=== PATIENT | female | born 1990 | race Caucasian/White ===

== ENCOUNTER 2017-04-14 22:55 | Observation (INO) | payer MEDICAID ==
[~2017-04-14] VITALS: Ht 154.9 cm; Wt 46.2 kg
[2017-04-14] MEDS ORDERED: ONDANSETRON ODT 4 MG ONE (23:13)
[2017-04-14] MEDS ORDERED: LORazepam 1MG TABLET ONE (23:13)
[2017-04-14 23:28] LABS: BASOPHILS # (AUTO) 0.03 x10^3/uL (0-0.1); BASOPHILS % (AUTO) 0 % (0-1); EOSINOPHILS # (AUTO) 0.04 x10^3/uL (0-0.4); EOSINOPHILS % (AUTO) 0 % (1-7); LYMPHOCYTES % (AUTO) 32 % (22-44); MD NO; MEAN CORPUSCULAR HEMOGLOBIN 30.9 pg (27.0-34.8); MEAN CORPUSCULAR HGB CONC 33.5 g/dL (32.4-35.8); MEAN CORPUSCULAR VOLUME 92.3 fL (80-100); MONOCYTES # (AUTO) 1.07 x10^3/uL (0.2-0.8); MONOCYTES % (AUTO) 9 % (2-9); NEUTROPHILS # (AUTO) 6.64 x10^3/uL (1.8-6.8); NEUTROPHILS % (AUTO) 58 % (42-75); PLATELET COUNT 246 x10^3/uL (130-400); RED BLOOD COUNT 5.14 x10^6/uL (3.82-5.3); RED CELL DISTRIBUTION WIDTH 13.9 % (9.6-15.2)
[2017-04-14] MEDS ORDERED: ONDANSETRON ODT 4 MG PO ONE (23:30)
[2017-04-14] MEDS ORDERED: LORazepam 1MG TABLET PO ONE (23:30)
[2017-04-14 23:39] LABS: ALANINE AMINOTRANSFERASE 12 U/L (12-78); ALBUMIN 4.4 g/dL (3.4-5.0); ANION GAP 11 mmol/L (5-15); CALCIUM 8.7 mg/dL (8.5-10.1); CHLORIDE 103 mmol/L (98-107); CREATININE 0.74 mg/dL (0.55-1.02); SALICYLATE LEVEL 2.1 mg/dL (2.8-20.0)
[2017-04-14 23:43] LABS: ALKALINE PHOSPHATASE 80 U/L (45-117); TOTAL PROTEIN 7.9 g/dL (6.4-8.2)
[2017-04-14 23:49] LABS: BILIRUBIN,TOTAL 0.6 mg/dL (0.2-1.0)
[2017-04-14 23:52] LABS: ACETAMINOPHEN < 2 mcg/mL (10-30)
[2017-04-15 00:07] LABS: MICROSCOPIC INDICATED
[2017-04-15 00:15] LABS: AMPHETAMINE SCREEN, URINE Negative (Negative); BARBITURATE SCREEN, URINE Negative (Negative); BENZODIAZEPINE SCREEN, URINE Positive (Negative); CANNABINOID SCREEN, URINE Positive (Negative); COCAINE SCREEN, URINE Negative (Negative); METHADONE SCREEN, URINE Negative (Negative); OPIATE SCREEN, URINE Positive (Negative)
[2017-04-15 00:16] LABS: CULTURE INDICATED? YES
[2017-04-15] MEDS ORDERED: DOCUSATE 100 MG CAPSULE PO PRN (00:30)
[2017-04-15] MEDS ORDERED: DIPHENHYDRAMINE 50 MG CAPSULE ONE (01:38)
[2017-04-15] MEDS ORDERED: ZIPRASIDONE 20MG CAPSULE ONE ×2 (01:43→14:53)
[2017-04-15] MEDS: ZIPRASIDONE 20MG CAPSULE PO PRN ×2 (01:45→16:35)
[2017-04-15] MEDS ORDERED: IBUPROFEN 200 MG TABLET ONE (12:19)
[2017-04-15] MEDS ORDERED: ZIPRASIDONE 20 MG INJ IM ONE (12:20)
[2017-04-15] MEDS: ZIPRASIDONE 20 MG INJ IM PRN (13:46)
[2017-04-15] MEDS ORDERED: DIPHENHYDRAMINE 25 MG CAPSULE ONE (14:53)
[2017-04-15] MEDS: IBUPROFEN 600 MG TABLET PO PRN (15:00)
[2017-04-15] MEDS: DIPHENHYDRAMINE 50 MG CAPSULE PO PRN ×2 (16:35→19:32)
[2017-04-15] MEDS: ONDANSETRON ODT 4 MG PO PRN (17:58)
[2017-04-15] MEDS ORDERED: KETOROLAC 30 MG/1 ML IM ONE (18:30)
[2017-04-15 19:45] VITALS: BP 90/41
[2017-04-15] MEDS ORDERED: ONDANSETRON ODT 4 MG PO PRN (20:00)
[2017-04-15 21:00] VITALS: BP 100/68
[2017-04-15] MEDS: CEFDINIR 300 MG CAPSULE PO SCH ×2 (21:00→21:04)
[2017-04-15] MEDS: PROMETHAZINE 25 MG/ML, 1ML IM PRN (21:05)
[2017-04-16] MEDS: ONDANSETRON ODT 4 MG PO PRN ×3 (00:13→20:12)
[2017-04-16 02:02] VITALS: BP 104/61
[2017-04-16] MEDS: PROMETHAZINE 25 MG/ML, 1ML IM PRN ×2 (02:33→11:42)
[2017-04-16] MEDS: ZIPRASIDONE 20 MG INJ IM PRN (04:56)
[2017-04-16 06:07] VITALS: BP 123/77
[2017-04-16 09:09] LABS: BASOPHILS # (AUTO) 0.08 x10^3/uL (0-0.1); BASOPHILS % (AUTO) 1 % (0-1); EOSINOPHILS % (AUTO) 0 % (1-7); LYMPHOCYTES # (AUTO) 1.88 x10^3/uL (1-3.4); LYMPHOCYTES % (AUTO) 16 % (22-44); MD NO; MEAN CORPUSCULAR HGB CONC 33.2 g/dL (32.4-35.8); MEAN CORPUSCULAR VOLUME 93.3 fL (80-100); MEAN PLATELET VOLUME 9.3 fL (7.4-10.4); MONOCYTES # (AUTO) 1.08 x10^3/uL (0.2-0.8); MONOCYTES % (AUTO) 9 % (2-9); NEUTROPHILS # (AUTO) 8.59 x10^3/uL (1.8-6.8); NEUTROPHILS % (AUTO) 74 % (42-75); PLATELET COUNT 231 x10^3/uL (130-400); RED BLOOD COUNT 5.23 x10^6/uL (3.82-5.3); RED CELL DISTRIBUTION WIDTH 13.8 % (9.6-15.2)
[2017-04-16 09:17] LABS: ANION GAP 10 mmol/L (5-15); CALCIUM 9.1 mg/dL (8.5-10.1); CHLORIDE 107 mmol/L (98-107); CREATININE 0.92 mg/dL (0.55-1.02)
[2017-04-16] MEDS: CEFDINIR 300 MG CAPSULE PO SCH ×2 (11:42→20:13)
[2017-04-16] MEDS ORDERED: FLUCONAZOLE 100 MG TABLET PO ONE (13:30)
[2017-04-16 13:43] VITALS: BP 118/72
[2017-04-16] MEDS: KETOROLAC 30 MG/1 ML IVPush PRN ×3 (13:46→21:57)
[2017-04-16] MEDS: QUETIAPINE 25MG TABLET PO PRN (15:29)
[2017-04-16] MEDS: PHENAZOPYRIDINE 100 MG TABLET PO SCH ×2 (16:00→20:11)
[2017-04-16] MEDS ORDERED: POTASSIUM CHLORIDE 20 MEQ TAB.ER.PRT PO ONE (17:00)
[2017-04-16] MEDS: IBUPROFEN 600 MG TABLET PO PRN (17:31)
[2017-04-16] MEDS ORDERED: BUPRENORPHINE/NALOXONE 8-2MG SL ONE ×2 (18:00→19:30)
[2017-04-16 19:48] VITALS: BP 92/58
[2017-04-16] MEDS ORDERED: QUETIAPINE 100MG TABLET PO SCH (21:00)
[2017-04-16] MEDS ORDERED: METHADONE 5 MG TABLET PO SCH (21:00)
[2017-04-16] MEDS ORDERED: TRAZODONE 50MG TABLET PO PRN (21:30)
[2017-04-16] MEDS ORDERED: NICOTINE 14MG/24 HR PATCH.TD24 TD ONE (21:30)
[2017-04-17 03:04] VITALS: BP 93/55
[2017-04-17 05:29] LABS: CHLORIDE 110 mmol/L (98-107)
[2017-04-17 05:36] LABS: ANION GAP 6 mmol/L (5-15); CALCIUM 7.9 mg/dL (8.5-10.1); CREATININE 0.94 mg/dL (0.55-1.02)
[2017-04-17 05:38] LABS: BASOPHILS # (AUTO) 0.03 x10^3/uL (0-0.1); BASOPHILS % (AUTO) 0 % (0-1); EOSINOPHILS # (AUTO) 0.03 x10^3/uL (0-0.4); EOSINOPHILS % (AUTO) 0 % (1-7); LYMPHOCYTES # (AUTO) 2.87 x10^3/uL (1-3.4); LYMPHOCYTES % (AUTO) 34 % (22-44); MD NO; MEAN CORPUSCULAR HEMOGLOBIN 30.9 pg (27.0-34.8); MEAN CORPUSCULAR VOLUME 93.4 fL (80-100); MEAN PLATELET VOLUME 9.4 fL (7.4-10.4); MONOCYTES # (AUTO) 0.83 x10^3/uL (0.2-0.8); MONOCYTES % (AUTO) 10 % (2-9); NEUTROPHILS # (AUTO) 4.73 x10^3/uL (1.8-6.8); NEUTROPHILS % (AUTO) 56 % (42-75); PLATELET COUNT 166 x10^3/uL (130-400); RED BLOOD COUNT 4.26 x10^6/uL (3.82-5.3); RED CELL DISTRIBUTION WIDTH 13.9 % (9.6-15.2)
[2017-04-17 06:58] VITALS: BP 92/58
[2017-04-17] MEDS: PHENAZOPYRIDINE 100 MG TABLET PO SCH ×2 (09:00→16:00)
[2017-04-17] MEDS: KETOROLAC 30 MG/1 ML IVPush PRN ×2 (10:37→16:33)
[2017-04-17] MEDS: ONDANSETRON ODT 4 MG PO PRN (10:38)
[2017-04-17] MEDS: CEFDINIR 300 MG CAPSULE PO SCH (10:38)
[2017-04-17] MEDS: QUETIAPINE 25MG TABLET PO PRN (10:38)
[2017-04-17] MEDS ORDERED: BUPRENORPHINE/NALOXONE 8-2MG SL SCH (11:00)
[2017-04-17 14:28] VITALS: BP 90/55
[2017-04-17] MEDS ORDERED: ENOXAPARIN 40 MG/0.4 ML SQ SCH (16:00)
[2017-04-17] MEDS: ZIPRASIDONE 20 MG INJ IM PRN (16:45)
[2017-04-17] MEDS ORDERED: CEFD125S3 PO (19:00)
[2017-04-17] MEDS ORDERED: PHEN-582 PO (19:01)
[2017-04-17] MEDS ORDERED: QUET200T4 PO (19:03)
[2017-04-17] MEDS ORDERED: BUPR1TAB45 SL (19:04)
[2017-04-17] MEDS ORDERED: ENOX80SY5 SQ (19:05)
[2017-04-17] MEDS ORDERED: ZIPR20CA3 INJ (19:07)
[2017-04-17] MEDS ORDERED: KETO10TA IV (19:10)
[2017-04-17] MEDS ORDERED: HYDR25TA11 PO (19:11)
[2017-04-17] MEDS ORDERED: TRAZ100T15 PO (19:12)
[2017-04-17] MEDS ORDERED: DOCU240C53 PO (19:12)
[2017-04-17] MEDS ORDERED: IBUP-11 PO (19:13)
[2017-04-17] MEDS ORDERED: QUET25TA PO (19:14)
[2017-04-17] MEDS ORDERED: ONDA4TAB13 SL (19:15)
[2017-04-17] MEDS ORDERED: CEFD300C37 PO (19:18)
[2017-04-17] MEDS ORDERED: PROM12.55 IM (19:24)
[2017-04-17 19:53] VITALS: BP 86/56
[2017-04-17] MEDS ORDERED: QUETIAPINE 200 MG TABLET PO SCH (21:00)
== END 2017-04-17 20:48 ==
LOC: ED 23:57 → EDIP 23:58 → 3NE 04-15 17:50
PROVIDERS: ADMIT Family Medicine; ATTEND Family Medicine
DX: R45.851 Suicidal ideations (principal); F12.90 Cannabis use, unspecified, uncomplicated; R10.2 Pelvic and perineal pain; G89.29 Other chronic pain; F17.210 Nicotine dependence, cigarettes, uncomplicated; Z91.5 Personal history of self-harm
CPT/HCPCS: 36415; 76856; 80048; 80053; 80074; 80307; 80329; 81001; 83735; 84100; 84703; 85025; 87086; 87491; 87591; 87806; 96372; 96374; 96376; 99285; G0378; J1885; J2550; J3486; Q0162; Q0177; G0475; G0480

== ENCOUNTER 2017-06-07 15:00 | Emergency (ER) | payer MEDICAID ==
[~2017-06-07] VITALS: Ht 152.4 cm; Wt 50.0 kg
[~2017-06-07 15:00] MED LIST: BUPR1TAB45 SL; CEFD125S3 PO; CEFD300C37 PO; DOCU240C53 PO; ENOX80SY5 SQ; HYDR25TA11 PO; IBUP-11 PO; KETO10TA IV; ONDA4TAB13 SL; PHEN-582 PO; PROM12.55 IM; QUET200T4 PO; QUET25TA PO; TRAZ100T15 PO; ZIPR20CA3 INJ
[2017-06-07] MEDS ORDERED: QUET200T4 PO (15:13)
[2017-06-07] MEDS ORDERED: LAMO25TB PO (15:13)
[2017-06-07] MEDS ORDERED: QUET100T4 PO (15:13)
[2017-06-07] MEDS ORDERED: BUSP5TAB2 PO (15:13)
[2017-06-07] MEDS ORDERED: METOCLOPRAMIDE 5 MG/ML, 2ML ONE (15:29)
[2017-06-07] MEDS ORDERED: FAMOTIDINE 20 MG/2 ML ONE (15:29)
[2017-06-07] MEDS ORDERED: SODIUM CHLORIDE 0.9% 1,000ML IVBOLUS ONE (15:30)
[2017-06-07] MEDS ORDERED: FAMOTIDINE 20 MG/2 ML IVPush ONE (15:30)
[2017-06-07] MEDS ORDERED: METOCLOPRAMIDE 5 MG/ML, 2ML IVPush ONE (15:30)
[2017-06-07] MEDS ORDERED: SODIUM CHLORIDE FLUSH 10ML SYR IVF ONE (15:30)
[2017-06-07 15:38] LABS: BASOPHILS # (AUTO) 0.01 x10^3/uL (0-0.1); BASOPHILS % (AUTO) 0 % (0-1); EOSINOPHILS # (AUTO) 0.01 x10^3/uL (0-0.4); EOSINOPHILS % (AUTO) 0 % (1-7); LYMPHOCYTES # (AUTO) 1.16 x10^3/uL (1-3.4); LYMPHOCYTES % (AUTO) 12 % (22-44); MD NO; MEAN CORPUSCULAR HEMOGLOBIN 31.5 pg (27.0-34.8); MEAN CORPUSCULAR VOLUME 92.7 fL (80-100); MEAN PLATELET VOLUME 9.3 fL (7.4-10.4); MONOCYTES # (AUTO) 0.19 x10^3/uL (0.2-0.8); MONOCYTES % (AUTO) 2 % (2-9); NEUTROPHILS # (AUTO) 8.35 x10^3/uL (1.8-6.8); NEUTROPHILS % (AUTO) 86 % (42-75); PLATELET COUNT 297 x10^3/uL (130-400); RED BLOOD COUNT 5.26 x10^6/uL (3.82-5.3); RED CELL DISTRIBUTION WIDTH 13.6 % (9.6-15.2)
[2017-06-07 15:46] LABS: ALBUMIN 4.6 g/dL (3.4-5.0); ANION GAP 12 mmol/L (5-15); CALCIUM 9.4 mg/dL (8.5-10.1); CHLORIDE 107 mmol/L (98-107)
[2017-06-07] MEDS ORDERED: LORazepam 2 MG/ML, 1ML ONE (15:47)
[2017-06-07 15:51] LABS: ALANINE AMINOTRANSFERASE 27 U/L (12-78); ALKALINE PHOSPHATASE 82 U/L (45-117); BILIRUBIN,TOTAL 0.7 mg/dL (0.2-1.0); CREATININE 0.86 mg/dL (0.55-1.02); TOTAL PROTEIN 8.2 g/dL (6.4-8.2)
[2017-06-07] MEDS ORDERED: LORazepam 2 MG/ML, 1ML IVPush ONE (16:00)
[2017-06-07 16:45] LABS: CLUE CELLS NONE SEEN (NONE SEEN); WET PREP WBCS FEW (FEW)
[2017-06-07 17:21] VITALS: BP 93/60
== END 2017-06-07 17:59 | disposition home or self-care (01) ==
LOC: ED 17:09
DX: R11.2 Nausea with vomiting, unspecified (principal); R19.7 Diarrhea, unspecified; F41.1 Generalized anxiety disorder; F32.9 Major depressive disorder, single episode, unspecified
CPT/HCPCS: 36415; 80053; 83690; 84703; 85025; 87210; 87491; 87591; 87808; 93005; 96361; 96374; 96375; 99285; J2060; J2765; J7030; S0028

== ENCOUNTER 2017-07-29 18:56 | Observation (INO) | payer MEDICAID ==
[~2017-07-29] VITALS: Ht 152.4 cm; Wt 50.0 kg
[~2017-07-29 18:56] MED LIST changes: +AMBIEN; +BUSP5TAB2 PO; +LAMO25TB PO; +QUET100T4 PO
[2017-07-29] MEDS ORDERED: KETOROLAC 30 MG/1 ML IVPush ONE (20:00)
[2017-07-29] MEDS ORDERED: ONDANSETRON 2MG/ML, 2ML IVPush ONE (20:00)
[2017-07-29] MEDS ORDERED: SODIUM CHLORIDE 0.9% 1,000ML IVBOLUS ONE (20:00)
[2017-07-29 20:09] LABS: BASOPHILS # (AUTO) 0.03 x10^3/uL (0-0.1); BASOPHILS % (AUTO) 1 % (0-1); EOSINOPHILS # (AUTO) 0.04 x10^3/uL (0-0.4); EOSINOPHILS % (AUTO) 1 % (1-7); LYMPHOCYTES # (AUTO) 1.83 x10^3/uL (1-3.4); LYMPHOCYTES % (AUTO) 38 % (22-44); MD NO; MEAN CORPUSCULAR HEMOGLOBIN 31.2 pg (27.0-34.8); MEAN CORPUSCULAR HGB CONC 34.2 g/dL (32.4-35.8); MEAN CORPUSCULAR VOLUME 91.1 fL (80-100); MEAN PLATELET VOLUME 8.5 fL (7.4-10.4); MONOCYTES # (AUTO) 0.35 x10^3/uL (0.2-0.8); MONOCYTES % (AUTO) 7 % (2-9); NEUTROPHILS # (AUTO) 2.62 x10^3/uL (1.8-6.8); NEUTROPHILS % (AUTO) 54 % (42-75); PLATELET COUNT 182 x10^3/uL (130-400); RED BLOOD COUNT 4.62 x10^6/uL (3.82-5.3); RED CELL DISTRIBUTION WIDTH 12.9 % (9.6-15.2)
[2017-07-29] MEDS ORDERED: ONDANSETRON 2MG/ML, 2ML ONE (20:12)
[2017-07-29] MEDS ORDERED: KETOROLAC 30 MG/1 ML ONE (20:12)
[2017-07-29 20:16] LABS: ALANINE AMINOTRANSFERASE 15 U/L (12-78); ALBUMIN 3.9 g/dL (3.4-5.0); ANION GAP 7 mmol/L (5-15); CALCIUM 8.5 mg/dL (8.5-10.1); CHLORIDE 109 mmol/L (98-107); SALICYLATE LEVEL 3.3 mg/dL (2.8-20.0)
[2017-07-29 20:22] LABS: ALKALINE PHOSPHATASE 68 U/L (45-117); BILIRUBIN,TOTAL 0.3 mg/dL (0.2-1.0); CREATININE 0.76 mg/dL (0.55-1.02); TOTAL PROTEIN 6.8 g/dL (6.4-8.2)
[2017-07-29 20:26] LABS: ACETAMINOPHEN < 2 mcg/mL (10-30)
[2017-07-29 20:46] LABS: AMPHETAMINE SCREEN, URINE Negative (Negative); BARBITURATE SCREEN, URINE Negative (Negative); BENZODIAZEPINE SCREEN, URINE Positive (Negative); CANNABINOID SCREEN, URINE Negative (Negative); COCAINE SCREEN, URINE Negative (Negative); METHADONE SCREEN, URINE Negative (Negative); OPIATE SCREEN, URINE Positive (Negative)
[2017-07-29] MEDS ORDERED: HYDR25TA11 PO (23:29)
[2017-07-30] MEDS ORDERED: ONDANSETRON ODT 4 MG PO PRN (03:30)
[2017-07-30] MEDS ORDERED: ACETAMINOPHEN 325 MG TABLET PO PRN (03:30)
[2017-07-30] MEDS ORDERED: DOCUSATE 100 MG CAPSULE PO PRN (03:30)
[2017-07-30] MEDS: BUSPIRONE 5 MG TABLET PO SCH ×4 (05:07→20:03)
[2017-07-30] MEDS: TEMAZEPAM 15 MG CAPSULE PO PRN ×2 (10:00→20:05)
[2017-07-30 10:18] VITALS: BP 103/65
[2017-07-30] MEDS: METHADONE 5 MG TABLET PO SCH ×2 (12:49→20:03)
[2017-07-30] MEDS ORDERED: LORazepam 1MG TABLET ONE (16:44)
[2017-07-30] MEDS: LORazepam 1MG TABLET PO PRN (16:59)
[2017-07-30 17:19] LABS: MICROSCOPIC INDICATED
[2017-07-30 17:28] LABS: CULTURE INDICATED? YES
[2017-07-30 19:37] VITALS: BP 112/72
[2017-07-30] MEDS ORDERED: QUETIAPINE 200 MG TABLET PO SCH (21:00)
[2017-07-31] MEDS: LORazepam 1MG TABLET PO PRN ×3 (00:15→15:27)
[2017-07-31] MEDS: METHADONE 5 MG TABLET PO SCH (08:34)
[2017-07-31] MEDS: BUSPIRONE 5 MG TABLET PO SCH (08:35)
[2017-07-31 09:29] VITALS: BP 105/67
[2017-07-31 09:49] LABS: BASOPHILS # (AUTO) 0.04 x10^3/uL (0-0.1); BASOPHILS % (AUTO) 1 % (0-1); EOSINOPHILS # (AUTO) 0.08 x10^3/uL (0-0.4); EOSINOPHILS % (AUTO) 1 % (1-7); LYMPHOCYTES # (AUTO) 2.25 x10^3/uL (1-3.4); LYMPHOCYTES % (AUTO) 37 % (22-44); MD NO; MEAN CORPUSCULAR HEMOGLOBIN 30.1 pg (27.0-34.8); MEAN CORPUSCULAR HGB CONC 33.1 g/dL (32.4-35.8); MEAN PLATELET VOLUME 8.3 fL (7.4-10.4); MONOCYTES # (AUTO) 0.43 x10^3/uL (0.2-0.8); MONOCYTES % (AUTO) 7 % (2-9); NEUTROPHILS # (AUTO) 3.24 x10^3/uL (1.8-6.8); NEUTROPHILS % (AUTO) 54 % (42-75); PLATELET COUNT 207 x10^3/uL (130-400); RED BLOOD COUNT 4.53 x10^6/uL (3.82-5.3); RED CELL DISTRIBUTION WIDTH 12.7 % (9.6-15.2)
[2017-07-31 09:58] LABS: ALBUMIN 3.4 g/dL (3.4-5.0); ANION GAP 6 mmol/L (5-15); CALCIUM 8.4 mg/dL (8.5-10.1); CHLORIDE 110 mmol/L (98-107)
[2017-07-31 10:01] LABS: ALANINE AMINOTRANSFERASE 12 U/L (12-78); ALKALINE PHOSPHATASE 64 U/L (45-117); BILIRUBIN,TOTAL 0.8 mg/dL (0.2-1.0); TOTAL PROTEIN 6.2 g/dL (6.4-8.2)
== END 2017-07-31 16:10 ==
LOC: ED 19:16 → EDIP 07-30 03:12 → 3E 07-30 10:17
PROVIDERS: ADMIT Internal Medicine; ATTEND Internal Medicine
DX: T43.592A Poisoning by other antipsychotics and neuroleptics, intentional self-harm, initial encounter (principal); F41.9 Anxiety disorder, unspecified; F32.0 Major depressive disorder, single episode, mild; F17.210 Nicotine dependence, cigarettes, uncomplicated; Y92.89 Other specified places as the place of occurrence of the external cause
CPT/HCPCS: 36415; 80053; 80307; 80329; 81001; 84703; 85025; 87086; 93005; 96361; 96374; 96375; 99285; G0378; J1885; J2405; J7030; Q0177; G0480

== ENCOUNTER 2017-08-31 21:53 | Emergency (ER) | payer MEDICAID ==
[~2017-08-31] VITALS: Ht 152.4 cm; Wt 50.0 kg
[2017-08-31] MEDS ORDERED: SODIUM CHLORIDE 0.9% 1,000ML IVBOLUS ONE (22:30)
[2017-08-31] MEDS ORDERED: METOCLOPRAMIDE 5 MG/ML, 2ML IVPush ONE (22:30)
[2017-08-31] MEDS ORDERED: FAMOTIDINE 20 MG/2 ML IVP ONE (22:30)
[2017-08-31] MEDS ORDERED: PROMETHAZINE 25 MG/ML, 1ML IM ONE (22:30)
[2017-08-31] MEDS ORDERED: SODIUM CHLORIDE FLUSH 10ML SYR IVF ONE (22:30)
[2017-08-31] MEDS ORDERED: FAMOTIDINE 20 MG/2 ML ONE (22:57)
[2017-08-31] MEDS ORDERED: PROMETHAZINE 25 MG/ML, 1ML ONE (22:57)
[2017-08-31] MEDS ORDERED: METOCLOPRAMIDE 5 MG/ML, 2ML ONE (22:57)
[2017-08-31 23:08] VITALS: BP 110/53
== END 2017-08-31 23:53 | disposition home or self-care (01) ==
LOC: ED 23:23
DX: F11.23 Opioid dependence with withdrawal (principal); R11.2 Nausea with vomiting, unspecified; F17.200 Nicotine dependence, unspecified, uncomplicated
CPT/HCPCS: 96361; 96372; 96374; 96375; 99284; J2550; J2765; J7030; S0028

== ENCOUNTER 2017-12-29 21:54 | Emergency (ER) | payer MEDICAID ==
[~2017-12-29] VITALS: Ht 152.4 cm; Wt 46.9 kg
[~2017-12-29 21:54] MED LIST changes: -LAMO25TB PO; +LAMO25TB7 PO; +TRAZ-137 PO; -TRAZ100T15 PO
[2017-12-29 22:49] LABS: BASOPHILS # (AUTO) 0.11 x10^3/uL (0-0.1); BASOPHILS % (AUTO) 1 % (0-1); EOSINOPHILS % (AUTO) 1 % (1-7); LYMPHOCYTES # (AUTO) 3.69 x10^3/uL (1-3.4); LYMPHOCYTES % (AUTO) 28 % (22-44); MD NO; MEAN CORPUSCULAR HEMOGLOBIN 31.4 pg (27.0-34.8); MEAN CORPUSCULAR HGB CONC 33.8 g/dL (32.4-35.8); MEAN CORPUSCULAR VOLUME 92.8 fL (80-100); MEAN PLATELET VOLUME 8.7 fL (7.4-10.4); MONOCYTES # (AUTO) 0.71 x10^3/uL (0.2-0.8); MONOCYTES % (AUTO) 5 % (2-9); NEUTROPHILS # (AUTO) 8.69 x10^3/uL (1.8-6.8); NEUTROPHILS % (AUTO) 65 % (42-75); PLATELET COUNT 298 x10^3/uL (130-400); RED BLOOD COUNT 5.06 x10^6/uL (3.82-5.3); RED CELL DISTRIBUTION WIDTH 13.8 % (9.6-15.2)
[2017-12-29 22:59] LABS: ALANINE AMINOTRANSFERASE 11 U/L (12-78); ALBUMIN 3.3 g/dL (3.4-5.0); ANION GAP 9 mmol/L (5-15); CALCIUM 8.3 mg/dL (8.5-10.1); CHLORIDE 106 mmol/L (98-107); SALICYLATE LEVEL 2.8 mg/dL (2.8-20.0)
[2017-12-29 23:00] LABS: ALKALINE PHOSPHATASE 82 U/L (45-117); BILIRUBIN,TOTAL 0.2 mg/dL (0.2-1.0); TOTAL PROTEIN 6.8 g/dL (6.4-8.2)
[2017-12-29 23:01] LABS: ACETAMINOPHEN < 2 mcg/mL (10-30)
[2017-12-29 23:38] LABS: AMPHETAMINE SCREEN, URINE Positive (Negative); BARBITURATE SCREEN, URINE Negative (Negative); BENZODIAZEPINE SCREEN, URINE Positive (Negative); CANNABINOID SCREEN, URINE Positive (Negative); COCAINE SCREEN, URINE Negative (Negative); METHADONE SCREEN, URINE Negative (Negative); OPIATE SCREEN, URINE Positive (Negative)
[2017-12-30] MEDS ORDERED: POTASSIUM CHLORIDE 40 MEQ in SODIUM CHLORIDE 0.9% 500 ML IV ONE (02:00)
[2017-12-30 08:52] VITALS: BP 90/48
== END 2017-12-30 10:43 | disposition home or self-care (01) ==
LOC: ED 22:47
DX: F15.10 Other stimulant abuse, uncomplicated (principal); F11.10 Opioid abuse, uncomplicated; F19.14 Other psychoactive substance abuse with psychoactive substance-induced mood disorder; F32.9 Major depressive disorder, single episode, unspecified
CPT/HCPCS: 36415; 80053; 80307; 80329; 85025; 99284; G0480